=== PATIENT | male | born 1970 | race Caucasian/White ===

== ENCOUNTER 2024-03-03 09:42 | Emergency (ER) | payer BC ==
[~2024-03-03] VITALS: Ht 170.2 cm; Wt 88.5 kg
[2024-03-03 09:42] VITALS: BP_SYST 181; PULSE 75; RESP 19; TEMP 97; O2SAT 98
[2024-03-03] MEDS: cloNIDine HCL 0.1 MG TABLET PO ONE (10:12)
[2024-03-03 10:32] LABS: BASOPHILS % (AUTO) 0.6 % (0.0-2.0); EOSINOPHILS # (AUTO) 0.1 K/uL (0.0-0.4); EOSINOPHILS % (AUTO) 2.4 % (0.0-4.0); HEMATOCRIT 40.2 % (36-54); HEMOGLOBIN 14.2 g/dL (14.0-18.0); LYMPHOCYTES # (AUTO) 1.1 K/uL (1.0-5.5); MEAN CORPUSCULAR HEMOGLOBIN 33 pg (27-31); MEAN CORPUSCULAR HGB CONC 35 % (32-36); MEAN CORPUSCULAR VOLUME 92 fL (79.0-98.0); MONOCYTES # (AUTO) 0.5 K/uL (0.0-1.0); MONOCYTES % (AUTO) 10.4 % (1.7-9.3); NEUTROPHILS # (AUTO) 3.3 K/uL (1.8-7.7); NEUTROPHILS % (AUTO) 64.6 % (40.0-70.0); PLATELET COUNT (AUTO) 190 K/uL (130-430); RED BLOOD CELL COUNT(AUTO) 4.34 MIL/uL (4.2-6.2); RED CELL DISTRIBUTION WIDTH 13.1 % (9.0-15.0); WHITE BLOOD COUNT (AUTO) 5.1 K/uL (4.8-10.8)
[2024-03-03] MEDS ORDERED: AMLO5TAB4 PO (10:39)
[2024-03-03] MEDS ORDERED: ASPI-989 PO (10:39)
[2024-03-03 11:01] LABS: ALANINE AMINOTRANSFERASE 28 U/L (12-78); ALBUMIN 3.8 g/dL (3.4-4.8); ANION GAP 6 (5-15); ASPARTATE AMINOTRANSFERASE 20 U/L (10-37); CARBON DIOXIDE 27 mmol/L (23-29); CHLORIDE 105 mmol/L (98-107); CREATININE 1.17 mg/dL (0.55-1.30); GFR AFRICAN AMERICAN 83 mL/min (>90); GLUCOSE 103 mg/dL (74-106); POTASSIUM 3.9 mmol/L (3.5-5.1); SODIUM SERUM 138 mmol/L (136-145); TOTAL BILIRUBIN 1.2 mg/dL (0.0-1.0); TOTAL PROTEIN, SERUM 6.9 g/dL (6.4-8.3); UREA NITROGEN, BLOOD 14 mg/dL (8-21)
[2024-03-03 11:02] LABS: GFR NON AFRICAN-AMERICAN 69 mL/min (>90)
[2024-03-03 11:05] LABS: BILIRUBIN,DIRECT 0.2 mg/dL (0.0-0.3); CREATINE KINASE, TOTAL 191 U/L (39-308)
[2024-03-03 11:11] LABS: PROTHROMBIN TIME 11.1 SECS (9.5-12.5)
[2024-03-03] MEDS ORDERED: ASPI-1155 PO (12:58)
[2024-03-03] MEDS ORDERED: CLON0.2T PO (13:09)
[2024-03-03 13:20] VITALS: BP_SYST 120; PULSE 73; RESP 19; TEMP 97; O2SAT 98
== END 2024-03-03 13:18 | disposition home or self-care (01) ==
LOC: SED 09:42 → EDBD 09:42 → SED 13:18
DX: G45.8 Other transient cerebral ischemic attacks and related syndromes (principal); I16.0 Hypertensive urgency; R51.9 Headache, unspecified; R20.2 Paresthesia of skin; R11.0 Nausea; I10 Essential (primary) hypertension; Z79.899 Other long term (current) drug therapy; Z79.82 Long term (current) use of aspirin
CPT/HCPCS: 36415; 70450-TC; 71045; 80048; 80076; 82550; 83605; 83880; 84484; 85025; 85610; 85730; 93005; 99285

== ENCOUNTER 2024-03-10 13:02 | Emergency (ER) | payer BC ==
[~2024-03-10] VITALS: Ht 172.7 cm; Wt 88.5 kg
[~2024-03-10 13:02] MED LIST: AMLO5TAB4 PO; ASPI-1155 PO; ASPI-989 PO; CLON0.2T PO
[2024-03-10 13:15] VITALS: BP_SYST 117; PULSE 69; RESP 18; TEMP 96.9; O2SAT 96
[2024-03-10] MEDS: NACL 0.9% 1,000 ML IV ONE (15:21)
[2024-03-10 16:38] LABS: BASOPHILS % (AUTO) 0.4 % (0.0-2.0); EOSINOPHILS # (AUTO) 0.1 K/uL (0.0-0.4); EOSINOPHILS % (AUTO) 2.5 % (0.0-4.0); HEMATOCRIT 38.5 % (36-54); HEMOGLOBIN 13.7 g/dL (14.0-18.0); LYMPHOCYTES # (AUTO) 1.6 K/uL (1.0-5.5); LYMPHOCYTES % (AUTO) 26.5 % (20.5-51.5); MEAN CORPUSCULAR HEMOGLOBIN 33 pg (27-31); MEAN CORPUSCULAR HGB CONC 36 % (32-36); MEAN CORPUSCULAR VOLUME 93 fL (79.0-98.0); MONOCYTES # (AUTO) 0.7 K/uL (0.0-1.0); MONOCYTES % (AUTO) 11.1 % (1.7-9.3); NEUTROPHILS # (AUTO) 3.5 K/uL (1.8-7.7); NEUTROPHILS % (AUTO) 59.5 % (40.0-70.0); PLATELET COUNT (AUTO) 173 K/uL (130-430); RED BLOOD CELL COUNT(AUTO) 4.13 MIL/uL (4.2-6.2); WHITE BLOOD COUNT (AUTO) 5.9 K/uL (4.8-10.8)
[2024-03-10 16:53] LABS: BILIRUBIN,URINE NEGATIVE (NEGATIVE); BLOOD, URINE NEGATIVE (NEGATIVE); CLARITY/URINE CLEAR (CLEAR); GLUCOSE,URINE NEGATIVE (NEGATIVE); KETONES,URINE NEGATIVE (NEGATIVE); LEUKOCYTE ESTERASE ,URINE NEGATIVE (NEGATIVE); NITRITE, URINE NEGATIVE (NEGATIVE); PROTEIN URINE NEGATIVE (NEGATIVE); UROBILINOGEN,URINE 0.2 (0.2-1.0)
[2024-03-10 17:06] LABS: ANION GAP 8 (5-15); CALCIUM 8.5 mg/dL (8.4-11.0); CARBON DIOXIDE 26 mmol/L (23-29); CHLORIDE 104 mmol/L (98-107); CREATININE 1.06 mg/dL (0.55-1.30); GFR AFRICAN AMERICAN 93 mL/min (>90); GFR NON AFRICAN-AMERICAN 77 mL/min (>90); GLUCOSE 90 mg/dL (74-106); POTASSIUM 3.8 mmol/L (3.5-5.1); SODIUM SERUM 138 mmol/L (136-145); UREA NITROGEN, BLOOD 19 mg/dL (8-21)
[2024-03-10 17:07] LABS: COLOR,URINE STRAW (YELLOW)
[2024-03-10] MEDS ORDERED: iohexoL 350 mgI/mL, 100 ML INFUS..BTL IV ONE (17:16)
[2024-03-10 17:23] LABS: BARBITURATE, URINE NEGATIVE (NEG <=200); BENZODIAZEPINE, URINE NEGATIVE (NEG <=150); CANNABINOID, URINE NEGATIVE (NEG <=50); COCAINE, URINE NEGATIVE (NEG <=150); METHAMPHETAMINES SCREEN,URINE NEGATIVE (NEG <=500); OPIATE, URINE NEGATIVE (NEG <=100); PHENCYCLIDINE SCREEN,URINE NEGATIVE (NEG <=25); URINE AMPHETAMINE NEGATIVE (NEG <=500); URINE METHADONE NEGATIVE (NEG <=200); URINE OXYCODONE SCREEN NEGATIVE (NEG <=100)
[2024-03-10 17:24] LABS: UR TRICYCLIC ANTIDEPRESSANTS NEGATIVE (NEG <=300)
[2024-03-10 19:49] VITALS: BP_SYST 106; PULSE 54; RESP 16; TEMP 98.1; O2SAT 98
== END 2024-03-10 19:49 | disposition home or self-care (01) ==
LOC: SED 13:02
DX: I10 Essential (primary) hypertension (principal); R42 Dizziness and giddiness; R20.0 Anesthesia of skin; Z98.890 Other specified postprocedural states; Z79.899 Other long term (current) drug therapy; Z79.82 Long term (current) use of aspirin; Z79.2 Long term (current) use of antibiotics
CPT/HCPCS: 99285; 70496; 96360; 96361; 80307; 80048; 83880; 85025; 84484; 36415; 93005; 70498; 81001; 70450; 81003; Q9967; J7030